=== PATIENT | female | born 1965 | race Caucasian/White ===

== ENCOUNTER 2016-03-31 22:29 | Emergency (ER) | payer BC ==
[~2016-03-31] VITALS: Ht 160 cm; Wt 53.5 kg
[2016-03-31] MEDS ORDERED: IV NS 0.9% 1,000 ML BAG IV ONE (23:00)
[2016-03-31] MEDS ORDERED: ONDANSETRON HCL/PF 4 MG/2 ML VIAL IVP ONE (23:00)
[2016-03-31] MEDS ORDERED: IV SET PRIMARY 1 EA INFUS.SET MC ONE (23:02)
[2016-03-31] MEDS ORDERED: ONDANSETRON HCL/PF 4 MG/2 ML VIAL ONE (23:02)
[2016-03-31] MEDS ORDERED: IV NS 0.9% 1,000 ML ONE (23:02)
[2016-03-31 23:21] LABS: BASOPHILS % (AUTO) 0.1 % (0.0-2.0); DIFF TOTAL % 100 %; HEMATOCRIT 35 % (33-45); HEMOGLOBIN 11.7 g/dL (11.5-14.8); LYMPHOCYTES # (AUTO) 0.7 /CMM (0.8-4.8); MEAN CORPUSCULAR HEMOGLOBIN 30 PG (26.0-33.0); MEAN CORPUSCULAR HGB CONC 33 g/dl (31.0-36.0); MEAN CORPUSCULAR VOLUME 90 fL (82-100); MONOCYTES # (AUTO) 0.2 /CMM (0.1-1.30); MONOCYTES % (AUTO) 2.8 % (2.0-12.0); NEUTROPHILS # (AUTO) 7.6 /CMM (1.8-8.9); NEUTROPHILS % (AUTO) 89.1 % (43.0-81.0); PLATELET COUNT (AUTO) 242 /CMM (150-450); RED BLOOD CELL COUNT(AUTO) 3.92 MIL/uL (4.0-5.2); WHITE BLOOD COUNT (AUTO) 8.6 K/uL (4.3-11.0)
[2016-03-31 23:31] LABS: CALCIUM, SERUM 8.2 mg/dL (8.5-10.1); CREATININE 0.9 mg/dL (0.6-1.3); POTASSIUM 3.8 mmol/L (3.5-5.1)
[2016-03-31 23:37] LABS: ALBUMIN 3.2 g/dL (3.4-5.0); BILIRUBIN,DIRECT 0.1 mg/dL (0.0-0.2); BILIRUBIN,TOTAL 0.5 mg/dL (0.2-1.0); INDIRECT BILIRUBIN 0.4 mg/dL (0.0-1.1)
[2016-03-31 23:40] LABS: KETONES,URINE 2+ (NEGATIVE); LEUKOCYTE ESTERASE ,URINE NEGATIVE (NEGATIVE)
[2016-03-31 23:50] LABS: ADD UA MICROSCOPIC YES
[2016-03-31 23:51] LABS: ADD URINE CULTURE YES; RBC,URINE NONE SEEN /HPF (0-2)
[2016-04-01] MEDS ORDERED: CIPROFLOXACIN HCL 500 MG TABLET PO ONE
[2016-04-01] MEDS ORDERED: METRONIDAZOLE 500 MG TABLET PO ONE
[2016-04-01] MEDS ORDERED: IV NS 0.9% 1,000 ML ONE ×2 (00:08→00:40)
[2016-04-01] MEDS ORDERED: IV SET PRIMARY 1 EA INFUS.SET MC ONE ×2 (00:08→00:40)
[2016-04-01] MEDS ORDERED: IV NS 0.9% 1,000 ML BAG IV ONE (00:30)
[2016-04-01] MEDS ORDERED: CIPROFLOXACIN HCL 500 MG TABLET ONE (00:39)
[2016-04-01] MEDS ORDERED: METRONIDAZOLE 500 MG TABLET ONE (00:40)
[2016-04-01 01:15] VITALS: BP 98/68
== END 2016-04-01 01:15 | disposition home or self-care (01) ==
LOC: ER 22:32
DX: K52.9 Noninfective gastroenteritis and colitis, unspecified (principal); E11.9 Type 2 diabetes mellitus without complications; E06.3 Autoimmune thyroiditis; Z90.49 Acquired absence of other specified parts of digestive tract; E89.0 Postprocedural hypothyroidism
CPT/HCPCS: 36415; 74176; 80048; 80076; 81001; 82962; 83690; 85025; 87086; 96361; 96374; 99285; A4606; J2405; J7030 ×3; Z7610; 81000-TC

== ENCOUNTER 2021-01-27 21:59 | Emergency (ER) | payer BC ==
[~2021-01-27] VITALS: Ht 154.9 cm; Wt 59.0 kg
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
[2021-01-27] MEDS ORDERED: IBUPROFEN 400 MG TABLET ONE (22:27)
[2021-01-27] MEDS ORDERED: IBUPROFEN 400 MG TABLET PO ONE (22:30)
--- NOTE | 2021-01-27 23:11 | NUR ---
PATIENT TAKEN TO CT
[2021-01-28 01:05] VITALS: BP 125/76
--- NOTE | 2021-01-28 01:05 | NUR ---
Patient discharged to home in stable condition. Written and verbal after care instructions given. Patient verbalizes understanding of instruction. Pt ambulated out of ED. VSS.
== END 2021-01-28 01:09 | disposition home or self-care (01) ==
LOC: ER 22:20
DX: S63.591A Other specified sprain of right wrist, initial encounter (principal); S16.1XXA Strain of muscle, fascia and tendon at neck level, initial encounter; S29.012A Strain of muscle and tendon of back wall of thorax, initial encounter; E11.9 Type 2 diabetes mellitus without complications; E03.9 Hypothyroidism, unspecified; Z90.49 Acquired absence of other specified parts of digestive tract; Z98.890 Other specified postprocedural states; Z88.5 Allergy status to narcotic agent; V49.49XA Driver injured in collision with other motor vehicles in traffic accident, initial encounter; Y93.89 Activity, other specified; Y92.413 State road as the place of occurrence of the external cause; Y99.8 Other external cause status
CPT/HCPCS: 71045-TC; 72125-TC; 72128-TC; 73110